=== PATIENT | female | born 1970 | race Caucasian/White ===

== ENCOUNTER 2017-08-21 08:00 | Outpatient (CLI) | payer BC | END 2017-08-21 08:01 | disposition home or self-care (01) | LOC: BICMRI 08:00 | PROVIDERS: ATTEND Podiatrist | DX: M79.672 Pain in left foot (principal); M72.2 Plantar fascial fibromatosis ==

== ENCOUNTER 2018-04-10 15:35 | Outpatient (CLI) | payer BC | END 2018-04-10 15:36 | disposition home or self-care (01) | LOC: BICMAMMO 15:35 | PROVIDERS: ATTEND Obstetrics & Gynecology | DX: Z12.31 Encounter for screening mammogram for malignant neoplasm of breast (principal); Z80.3 Family history of malignant neoplasm of breast | CPT/HCPCS: 77063; 77067 ==

== ENCOUNTER 2019-04-11 15:42 | Outpatient (CLI) | payer BC ==
--- NOTE | 2019-04-11 16:18 | MMO ---
Bilateral MAMMO Bilat Screen [facility]. CLINICAL HISTORY: Patient is 48 years old and is seen for screening. The patient has the following family history of breast cancer: mother, at age 55. The patient has no personal history of cancer. VIEWS: The views performed were: bilateral craniocaudal with tomosynthesis and bilateral mediolateral oblique with tomosynthesis. FILMS COMPARED: The present examination has been compared to prior imaging studies performed at [facility] on 03/23/2015, 03/25/2016, 04/04/2017 and 04/10/2018. MAMMOGRAM FINDINGS: The breasts are heterogeneously dense, which could obscure a lesion on mammography. There are benign appearing calcifications seen in both breasts. There are no suspicious masses, suspicious calcifications, or new areas of architectural distortion. IMPRESSION: THERE IS NO MAMMOGRAPHIC EVIDENCE OF MALIGNANCY. A ROUTINE FOLLOW-UP MAMMOGRAM IN 1 YEAR IS RECOMMENDED. THE RESULTS OF THIS EXAM WERE SENT TO THE PATIENT. ACR BI-RADS Category 2 - Benign finding MAMMOGRAPHY NOTE: 1. A negative mammogram report should not delay a biopsy if a dominant of clinically suspicious mass is present. 2. Approximately 10% to 15% of breast cancers are not detected by mammography. 3. Adenosis and dense breasts may obscure an underlying neoplasm. Reported by: SHANDA COLBY MD Electonically Signed: [id number]
== END 2019-04-11 15:43 | disposition home or self-care (01) ==
LOC: BICMAMMO 15:42
PROVIDERS: ATTEND Obstetrics & Gynecology
DX: Z12.31 Encounter for screening mammogram for malignant neoplasm of breast (principal); Z80.3 Family history of malignant neoplasm of breast
CPT/HCPCS: 77063; 77067

== ENCOUNTER 2020-04-14 16:07 | Outpatient (CLI) | payer BC ==
--- NOTE | 2020-04-15 09:27 | MMO ---
Bilateral MAMMO Bilat Screen [facility]. CLINICAL HISTORY: Patient is 49 years old and is seen for screening. The patient has the following family history of breast cancer: mother, at age 55. The patient has no personal history of cancer. VIEWS: The views performed were: bilateral craniocaudal with tomosynthesis and bilateral mediolateral oblique with tomosynthesis. FILMS COMPARED: The present examination has been compared to prior imaging studies performed at [facility] on 03/25/2016, 04/04/2017, 04/10/2018 and 04/11/2019. This study has been interpreted with the assistance of computer-aided detection. MAMMOGRAM FINDINGS: The breasts are heterogeneously dense, which could obscure a lesion on mammography. There are no suspicious masses, suspicious calcifications, or new areas of architectural distortion. IMPRESSION: THERE IS NO MAMMOGRAPHIC EVIDENCE OF MALIGNANCY. A ROUTINE FOLLOW-UP MAMMOGRAM IN 1 YEAR IS RECOMMENDED. THE RESULTS OF THIS EXAM WERE SENT TO THE PATIENT. ACR BI-RADS Category 1 - Negative MAMMOGRAPHY NOTE: 1. A negative mammogram report should not delay a biopsy if a dominant of clinically suspicious mass is present. 2. Approximately 10% to 15% of breast cancers are not detected by mammography. 3. Adenosis and dense breasts may obscure an underlying neoplasm. Reported by: MARIO PINA MD Electonically Signed: [id number]
== END 2020-04-14 16:08 | disposition home or self-care (01) ==
LOC: BICMAMMO 16:07
PROVIDERS: ATTEND Obstetrics & Gynecology
DX: Z12.31 Encounter for screening mammogram for malignant neoplasm of breast (principal); Z80.3 Family history of malignant neoplasm of breast
CPT/HCPCS: 77063; 77067

== ENCOUNTER 2021-04-15 15:46 | Outpatient (CLI) | payer BC | END 2021-04-15 15:47 | disposition home or self-care (01) | LOC: BICMAMMO 15:46 | PROVIDERS: ATTEND Obstetrics & Gynecology | DX: Z12.31 Encounter for screening mammogram for malignant neoplasm of breast (principal); Z80.3 Family history of malignant neoplasm of breast | CPT/HCPCS: 77063; 77067 ==

== ENCOUNTER 2022-04-21 15:55 | Outpatient (CLI) | payer BC | END 2022-04-21 15:56 | disposition home or self-care (01) | LOC: BICMAMMO 15:55 | PROVIDERS: ATTEND Student in an Organized Health Care Education/Training Program | DX: Z12.31 Encounter for screening mammogram for malignant neoplasm of breast (principal); N64.89 Other specified disorders of breast; Z80.3 Family history of malignant neoplasm of breast | CPT/HCPCS: 77063; 77067 ==

== ENCOUNTER 2022-05-02 15:00 | Outpatient (CLI) | payer BC | END 2022-05-02 15:01 | disposition home or self-care (01) | LOC: BICMAMMO 15:00 | PROVIDERS: ATTEND Student in an Organized Health Care Education/Training Program | DX: N64.89 Other specified disorders of breast (principal) | CPT/HCPCS: G0279 ==

== ENCOUNTER 2023-05-17 15:29 | Outpatient (CLI) | payer BC | END 2023-05-17 15:30 | disposition home or self-care (01) | LOC: BICMAMMO 15:29 | PROVIDERS: ATTEND Student in an Organized Health Care Education/Training Program | DX: Z12.31 Encounter for screening mammogram for malignant neoplasm of breast (principal); Z80.3 Family history of malignant neoplasm of breast | CPT/HCPCS: 77063; 77067 ==

== ENCOUNTER 2024-05-20 12:37 | Outpatient (CLI) | payer BC | END 2024-05-20 12:38 | disposition home or self-care (01) | LOC: BICMAMMO 12:37 | PROVIDERS: ATTEND Student in an Organized Health Care Education/Training Program | DX: Z12.31 Encounter for screening mammogram for malignant neoplasm of breast (principal); Z80.3 Family history of malignant neoplasm of breast | CPT/HCPCS: 77063; 77067 ==